=== PATIENT | male | born 1975 | race Caucasian/White ===

== ENCOUNTER 2019-09-23 08:52 | Day surgery (SDC) | payer OTHER, SELFPAY ==
[2019-09-16 10:55] VITALS: BMI 46.7
[2019-09-23 09:33] VITALS: BP 133/89; PULSE 97; RESP 16; TEMP 36.5; O2SAT 97; BMI 46.7
[2019-09-23] MEDS: LACTATED RINGERS 1,000 ML 42 ML IV (10:27)
--- NOTE | 2019-09-23 10:45 | SUR.PREOP ---
Pt arrived to preop via [facility]. Pain to left knee reported to this RN as >10. Pt was advised to stop his 300mg dose of allopurinol 3 days prior to a procedure to his right foot. As a result he came to us experiencing a gouty attack that had rendered him almost completely immobile. Dayday, Lead RN spoke with Dr. Palafox and advised her of the situation and pt was canceled for todays procedure. Pt was assisted in dressing by his and was helped into [facility] and escorted to ED entrance.
== END 2019-09-23 10:50 | disposition home or self-care (01) ==
LOC: OR 08:54
PROVIDERS: Family Provider Family Medicine; PCP Family Medicine; Visit Provider Orthopaedic Surgery Foot and Ankle Surgery

== ENCOUNTER 2019-10-14 05:53 | Day surgery (SDC) | payer OTHER, SELFPAY ==
[2019-10-03 15:24] VITALS: BMI 47.0
[2019-10-14] VITALS (9 sets, daily range): BP systolic 125–170; BP diastolic 67–97; PULSE 71–98; RESP 12–92; TEMP 36.5–36.7; O2SAT 12–100; BMI 47.0
--- NOTE | 2019-10-14 | DI.RAD.S_ITS ---
PROCEDURE: XR ANKLE RT MIN 3V INDICATIONS: OPEN ARTHROTOMY CHEILECTOMY ANKLE RT TECHNIQUE: 4 views of the ankle were acquired. COMPARISON: None. FINDINGS: Intraoperative fluoroscopic spot images demonstrate a medial distal tibial and talar pins in place with subsequent removal. Ankle mortise remains intact. IMPRESSION: Intraoperative right ankle views without and with hardware as described. Dictated by: Anuja Stuart M.D. on 10/14/2019 at 10:27 Approved by: Anuja Stuart M.D. on 10/14/2019 at 10:29
[2019-10-14] MEDS: LACTATED RINGERS 1,000 ML 42 ML IV (07:10)
--- NOTE | 2019-10-14 07:24 | P.HP_ITS ---
History of Present Illness History of Present Illness Date Patient Seen: 10/14/19 Time Patient Seen: 07:24 Chief complaint: [id number] Narrative: Patient presents to surgery for his right ankle spur excision and had fixation of insufficiency fractures talus and tibia. Previous surgery date with counseled due to acute gout flare. This has resolved now. Patient denies any numbness tingling nausea vomiting fever or chills. Presents ready for his curran [employer]. He has brought his boot with him. Patient History Medical History Ankle arthritis (Acute) Ankle fracture, right (Acute) GERD (gastroesophageal reflux disease) (Acute) Gout (Acute) Wears glasses (Acute) Surgical History H/O vasectomy (Acute) Family & Social History Social History: household members spouse Tobacco & Substance use: Smoking Status Never smoker alcohol intake current alcohol intake frequency 0-2 drinks per day Substance Use Type does not use Meds Home Medications and Allergies Home Medications Medication Instructions Recorded Confirmed Type allopurinol 300 mg PO DAILY 09/16/19 10/14/19 History ibuprofen [Advil] 600 mg PO Q6H 09/16/19 10/14/19 History ketorolac 10 mg PO Q6H 5 Days #20 tab 10/14/19 Rx oxycodone-acetaminophen [Percocet] 1 tab PO Q4H PRN #40 tab 10/14/19 Rx Allergies Allergy/AdvReac Type Severity Reaction Status Date / Time Penicillins Allergy Rash-Childh Verified 10/14/19 06:46 ood Review of Systems Review of Systems Narrative: History gout ROS Unobtainable: All systems reviewed & are unremarkable except as noted in HPI and below Exam Vital Signs (past 8 hours): - 10/14/19 07:03 Temperature 97.7 F Pulse Rate 71 Blood Pressure 142/90 H Pulse Oximetry 100 Oxygen Delivery Method Room Air Narrative Exam Narrative: General exam alert oriented male lying in bed. No acute distress. HEENT exam normocephalic atraumatic Respiratory exam unlabored on room air, lungs clear to auscultation bilaterally CV exam regular rate and rhythm Abdomen soft and nontender obese Musculoskeletal exam. Right ankle no erythema or swelling. Pain anterior and posterior medial. No lesions. Wiggles toes. Demonstrates active dorsiflexion plantar flexion. Calf soft. Brisk capillary refill Assessment & Plan Assessment and plan (1) Morbid obesity with BMI of 45.0-49.9, adult: Current visit: Yes Status: Acute Assessment & Plan narrative: Patient is a 44-year-old male with right ankle arthritis and insufficiency fractures of the tibia and talus. These have been unresolved despite conservative treatment. He has been indicated for bone substitute treatment of the insufficiency fractures and anterior care elect me for the ankle impingement. He understands that this will not address the intra- articular arthritis but will and address the impingement in the front of the ankle and the underlying bone lesions. The patient will be able to weight bear after surgery but will not do range of motion until his incisions are healed. Patient understands and agrees with the plan. His previous gout flare has now resolved. The risks and benefits of the surgical procedure were discussed with the patient in detail again he has elected to proceed. He will be on aspirin postoperatively for DVT prophylaxis. Will also have course of Toradol and Percocet for pain control. He will follow up in 2 weeks for suture removal. Time Spent With Patient Time with patient: less than 15 minutes Quality VTE Deep Vein Thrombosis/Pulmonary Embolism Present on Admission: No
--- NOTE | 2019-10-14 07:28 | PM.PREOP ---
Pre-operative Note Interval Note History & Physical reviewed/Exam performed by Physician: Yes Changes to H&P: No
[2019-10-14] MEDS: CEFAZOLIN 1 GM/50 ML FROZ.PIGGY IV (07:45)
[2019-10-14] MEDS: CEFAZOLIN 2 GM/100 ML FROZ.PIGGY IV (07:55)
--- NOTE | 2019-10-14 08:26 | SUR.OPER ---
Supine on padded OR bed, head on pillow, arms secured on padded arm boards at <90 degrees abduction, bump under right hip, right leg is on blankets and under control of surgeon, left leg is uncrossed, safety belt at hips, tape over blanket over left leg lower leg.
[2019-10-14] MEDS: BUPIVACAINE 0.25% W/ EPI 30 ML VIAL INJ (09:09)
[2019-10-14] MEDS: fentaNYL 100 MCG/2 ML INJ IV ×2 (09:43→10:09)
[2019-10-14] MEDS: ACETAMINOPHEN 325 MG TABLET 975 MG PO (09:58)
[2019-10-14] MEDS: OXYCODONE IR 5 MG TABLET PO ×2 (09:59→10:32)
--- NOTE | 2019-10-14 11:32 | P.OP_ITS ---
Operative Date/Time/Diagnoses Date of procedure: 10/14/19 Time of procedure: 08:00 Pre-op diagnosis: Impingement syndrome right ankle M25.871 Fracture tibial plafond S82.87A Closed nondisplaced fracture dome right talus with delayed healing, subsequent encounter S92.144G Arthritis right ankle M19.071 Post-op diagnosis: same Procedure & Clinicians Procedure: Open treatment fracture talus right, CPT code 20488 Open treatment fracture tibial plafond and CPT code 51723-43 Excision tibia partial, right CPT code 15695-81 Same procedure as scheduled: Yes Indications: Jennifer is a 44-year-old male with chronic right ankle pain insufficiency fractures of his tibia and talus. He does have arthritis and anterior impingement. He is young and obese and not an ideal candidate for a fusion or total ankle replacement. He has chronic pain that is not been resolved by conservative treatment and has persistent bone marrow edema on MRI scan. He has been indicated for an open arthrotomy to address his anterior large spur as well as for treatment of his insufficiency fractures with bone substitute calcium phosphate injections. This procedure would allow the patient to immediately weightbear. We discussed expectations and limitations of the procedure. The risks benefits of the surgery were discussed in detail including but not limited to infection, nonunion, malunion, persistent pain, wound healing problems, amputation, DVT, pulmonary embolism, stroke, paralysis, , symptomatic hardware. The patient has recovered from his gout attack on the contralateral side and is ready to proceed. Consent was signed Surgeon: Disha Palafox Click Yes if Unassisted: Yes Anesthesia Type: General Operative Notes Findings: Large anterior distal tibial spur. Moderate thinning talar dome carti cailin surface. No full-thickness lesions visualized. Closure Type: primary Specimen(s): none sent Prosthetic devices, grafts, tissues, transplants, or devices: Calcium phosphate bone cement, Naun Accu fill Applied: other (Soft dressing) Estimated Blood Loss (mL): 2 Blood products transfused: none Tourniquet time (min): 53 Procedure in detail: Patient was seen in the preoperative area the site of surgery was marked informed consent confirmed. The H and P was updated as well as the consent. Patient was then [facility] He is positioned supine on the operative table. An ipsilateral thigh bump was placed. Well-padded thigh tourniquet was placed. All bony prominences were well padded. General anesthesia was administered. The right lower extremities prepped and draped in the standard sterile fashion. A formal time-out procedure was performed confirming the patient's side and site of surgery and propria administration of preoperative antibiotic. All were in agreement. The C-arm was brought in and the trajectories for the the Accu feel injection were marked out on the leg. The leg was then wrapped in Esmarch bandage the tourniquet elevated to 300 mm of mercury and stayed there for 53 minutes. Next attention was turned to the anterior arthrotomy. The anterior medial arthrotomy was performed centered over the joint medial to the tibialis anterior tendon. This taken down through the skin and subcutaneous tissue to level the joint this was opened exposing the tibiotalar joint. There's a large anterior distal tibial spur. Joint findings were as previously described. Once this was completed a targeting for the fixation of the talar dome and tibial plafond lesions was completed. 11 gauge and fill portals trocars were used. These were targeted from medial up into the center of the talar dome and from medial into the posterior medial area of the plafond corresponding with the MRI lesions. Once this was adequately targeted and confirmed on multiplanar intraoperative fluoroscopy. The Accu filled calcium phosphate was mixed. 1.5 cc of acute fill was injected into the talar dome and an additional 1.5 into the tibial plafond lesions. This filled the area well. There was no extravasation into the joint. Once this hardened attention was turned to the anterior ankle cheilectomy bone spur removal procedure. Osteotomes were used to remove the anterior spur all the way from medial to lateral cross the joint. The rongeur and pituitary were used to remove any remaining bone fragments. The joint was irrigated thoroughly with saline. The joint was then closed with 2 O Vicryl suture deep and 4 0 Monocryl and 3 O nylon in the skin. The trocars were all removed and the tourniquet was released. Toes pinked up well. A sterile dressing was Xeroform gauze Webril and Kerlix and a Abilio were placed. The patient was then placed into his postoperative boot once the drapes were removed. Final fluoroscopic imaging before dressing placement demonstrated excellent positioning of the Accu fill no evidence of intra-articular penetration and excellent removal of the anterior spur. Once the patient was woken he was moved onto the stretcher and taken to the PACU in good condition. There no immediate complications from this procedure. All counts were correct. Complications: none Post-operative Condition: stable Disposition: PACU Plan for aftercare: Weightbear as tolerated right lower extremity in boot. Elevate above the heart level. Toradol and Percocet for pain relief. Follow-up in 2 weeks.
--- NOTE | 2019-10-14 15:29 | SUR.PHASEII ---
Pt left when ready and left in stable condition.
== END 2019-10-14 11:10 | disposition home or self-care (01) ==
PROVIDERS: Family Provider Family Medicine; PCP Family Medicine; Visit Provider Orthopaedic Surgery Foot and Ankle Surgery
PROC: 0SSF04Z Reposition Right Ankle Joint with Internal Fixation Device, Open Approach (ICD-10-PCS; CPT 27827; principal; 2019-10-14 07:45)
DX: S82.871A Displaced pilon fracture of right tibia, initial encounter for closed fracture (principal); M25.871 Other specified joint disorders, right ankle and foot; S92.14 Dome fracture of talus; M19.071 Primary osteoarthritis, right ankle and foot; E66.01 Morbid (severe) obesity due to excess calories; Z68.42 Body mass index [BMI] 45.0-49.9, adult
CPT/HCPCS: 27827; 28445; 27640; 73610; 76000; J0690; J1100; J2250; J2405; J2704; J3010